=== PATIENT | female | born 1980 | race Two or more races ===

== ENCOUNTER 2018-10-30 12:48 | Inpatient (IN) | payer OTHER ==
[2018-10-30 12:44] VITALS: BMI 20.9
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
[2018-10-30] MEDS ORDERED: chlordiazePOXIDE HCL 25 MG CAPSULE PO PRN (15:08)
[2018-10-30] MEDS ORDERED: MAG HYDROX/AL HYDROX/SIMETH 30 ML UNIT-DOSE CUP PO PRN (15:08)
[2018-10-30] MEDS ORDERED: MAGNESIUM HYDROX 2400MG/30ML ORAL SUSPENSION 30 ML CUP PO PRN (15:08)
[2018-10-30] MEDS ORDERED: MAGNESIUM CITRATE 300 ML BOTTLE PO PRN (15:08)
[2018-10-30] MEDS ORDERED: hydrOXYzine PAMOATE 25 MG CAPSULE (FP) PO PRN (15:08)
[2018-10-30] MEDS ORDERED: guaiFENesin/D-METHORPHAN HB 10 ML UNIT-DOSE CUPS PO PRN (15:08)
[2018-10-30] MEDS ORDERED: IBUPROFEN 400 MG TABLET (FP) PO PRN (15:08)
[2018-10-30] MEDS ORDERED: MENTHOL/PHENOL 1 EACH UD MM PRN (15:08)
[2018-10-30] MEDS ORDERED: ACETAMINOPHEN 325 MG TABLET (FP) PO PRN (15:08)
[2018-10-30] MEDS: chlordiazePOXIDE HCL 25 MG CAPSULE PO SCH ×2 (16:58→22:47)
[2018-10-30] MEDS: THIAMINE HCL 100 MG TABLET (FP) PO SCH (22:47)
[2018-10-30] MEDS: MELATONIN 5 MG TABLETS PO PRN (22:47)
[2018-10-31] MEDS: chlordiazePOXIDE HCL 25 MG CAPSULE PO SCH ×4 (05:29→22:18)
[2018-10-31] MEDS: PRENATAL VITAMINS W/ FOLIC ACID TABLET (FP) PO SCH (10:39)
[2018-10-31 10:59] LABS: HEMATOCRIT 35.5 % (32.4-45.2); HEMOGLOBIN 11.2 GM/dL (10.7-15.3); MCH 27.2 pg (25.7-33.7); MCHC 31.5 g/dl (32.0-36.0); MEAN CELL VOLUME 86.3 fl (80-96); MEAN PLT VOLUME 8.5 fl (7.5-11.1); PLATELET COUNT 204 K/MM3 (134-434); RBC 4.11 M/mm3 (3.60-5.2); RDW 18.7 % (11.6-15.6); WHITE BLOOD COUNT 5.1 K/mm3 (4.0-10.0)
[2018-10-31 11:19] LABS: ALBUMIN 3.3 g/dl (3.4-5.0); ALK PHOS 60 U/L (45-117); ANION GAP 9 MMOL/L (8-16); BILIRUBIN,TOTAL 2.3 mg/dL (0.2-1); BLOOD UREA NITROGEN 6 mg/dL (7-18); CALCIUM 8.4 mg/dL (8.5-10.1); CHLORIDE 104 mmol/L (98-107); CO2 25 mmol/L (21-32); CREATININE 0.5 mg/dL (0.55-1.3); GLUCOSE,RANDOM 76 mg/dL (74-106); POTASSIUM 3.7 mmol/L (3.5-5.1); SGOT/AST 52 U/L (15-37); SGPT/ALT 40 U/L (13-61); SODIUM 138 mmol/L (136-145); TOT PROT 6.8 g/dl (6.4-8.2)
--- NOTE | 2018-10-31 12:22 | PN ---
S CIWA - CIWA Score Nausea/Vomitin-No Nausea/No Vomiting Muscle Tremors: 3 Anxiety: 3 Agitation: 3 Paroxysmal Sweats: 3 Orientation: 0-Oriented Tacttile Disturbances: 0-None Auditory Disturbances: 0-None Visual Disturbances: 0-None Headache: 0-None Present CIWA-Ar Total Score: 12 S Progress Note (SOAP) Subjective: sweats shakes interrupted sleep body aches agitation Objective: 10/31/18 12:24 Vital Signs Temperature 98.1 F 10/31/18 09:27 Pulse Rate 96 H 10/31/18 09:27 Respiratory Rate 16 10/31/18 09:27 Blood Pressure 126/77 10/31/18 09:27 O2 Sat by Pulse Oximetry (%) Laboratory Tests 10/31/18 10/31/18 07:00 07:00 WBC 5.1 RBC 4.11 Hgb 11.2 Hct 35.5 MCV 86.3 MCH 27.2 MCHC 31.5 L RDW 18.7 H Plt Count 204 MPV 8.5 Sodium 138 Potassium 3.7 Chloride 104 Carbon Dioxide 25 Anion Gap 9 BUN 6 L Creatinine 0.5 L Creat Clearance w eGFR > 60 Random Glucose 76 Calcium 8.4 L Total Bilirubin 2.3 H AST 52 H ALT 40 Alkaline Phosphatase 60 Total Protein 6.8 Albumin 3.3 L aaox3 ambulating no acute distress Assessment: 10/31/18 12:24 withdrawal sx Plan: continue detox increase fluids
[2018-10-31] MEDS: MELATONIN 5 MG TABLETS PO PRN (22:18)
[2018-10-31] MEDS: THIAMINE HCL 100 MG TABLET (FP) PO SCH (22:18)
[2018-11-01] MEDS: P-EPHED 60MG/TRIPROLIDI 2.5MG TABLET PO PRN (03:32)
[2018-11-01] MEDS: chlordiazePOXIDE HCL 25 MG CAPSULE PO SCH ×2 (06:03→10:20)
[2018-11-01] MEDS: PRENATAL VITAMINS W/ FOLIC ACID TABLET (FP) PO SCH (10:19)
[2018-11-01] MEDS: FERROUS SO4 325 MG TABLET (FP) PO SCH (10:55)
[2018-11-01] MEDS ORDERED: SODIUM CHLORIDE NASAL SPRAY 44 ML BOTTLE NS PRN (12:25)
--- NOTE | 2018-11-01 12:25 | PN ---
S CIWA - CIWA Score Nausea/Vomitin-No Nausea/No Vomiting Muscle Tremors: 3 Anxiety: 3 Agitation: 4-Moderately Restless Paroxysmal Sweats: 3 Orientation: 0-Oriented Tacttile Disturbances: 0-None Auditory Disturbances: 0-None Visual Disturbances: 0-None Headache: 0-None Present CIWA-Ar Total Score: 13 BHS Progress Note (SOAP) Subjective: sweats shakes interrupted sleep nasal congestion i normally take an iron supplement and i need to continue. Objective: 11/01/18 12:23 Vital Signs Temperature 98.2 F 11/01/18 10:41 Pulse Rate 84 11/01/18 10:41 Respiratory Rate 18 11/01/18 10:41 Blood Pressure 114/72 11/01/18 10:41 O2 Sat by Pulse Oximetry (%) Laboratory Tests 10/31/18 10/31/18 10/31/18 07:00 07:00 07:00 WBC 5.1 RBC 4.11 Hgb 11.2 Hct 35.5 MCV 86.3 MCH 27.2 MCHC 31.5 L RDW 18.7 H Plt Count 204 MPV 8.5 Sodium 138 Potassium 3.7 Chloride 104 Carbon Dioxide 25 Anion Gap 9 BUN 6 L Creatinine 0.5 L Creat Clearance w eGFR > 60 Random Glucose 76 Calcium 8.4 L Total Bilirubin 2.3 H AST 52 H ALT 40 Alkaline Phosphatase 60 Total Protein 6.8 Albumin 3.3 L RPR Titer Nonreactive aaox3 ambulating no acute distress labs results discussed with pt however pt insist she feels tired and wants to take her iron supplement. Assessment: 11/01/18 12:23 withdrawal sx Plan: continue detox iron supplement daily as per pt request ordered increase fluids
[2018-11-01] MEDS: chlordiazePOXIDE 5 MG CAPSULE PO SCH ×2 (17:40→22:10)
[2018-11-01] MEDS: THIAMINE HCL 100 MG TABLET (FP) PO SCH (22:10)
[2018-11-01] MEDS: MELATONIN 5 MG TABLETS PO PRN (22:10)
[2018-11-02] MEDS: P-EPHED 60MG/TRIPROLIDI 2.5MG TABLET PO PRN (05:54)
[2018-11-02] MEDS: chlordiazePOXIDE 5 MG CAPSULE PO SCH ×2 (05:54→10:23)
[2018-11-02] MEDS: FERROUS SO4 325 MG TABLET (FP) PO SCH (10:22)
[2018-11-02] MEDS: PRENATAL VITAMINS W/ FOLIC ACID TABLET (FP) PO SCH (10:22)
--- NOTE | 2018-11-02 13:08 | PN ---
BHS Progress Note (SOAP) Subjective: feeling better no tremor less sweat sleep better at night social with peers in day room Objective: 11/02/18 13:09 Vital Signs Temperature 97.9 F 11/02/18 09:38 Pulse Rate 108 H 11/02/18 09:38 Respiratory Rate 18 11/02/18 09:38 Blood Pressure 113/72 11/02/18 09:38 O2 Sat by Pulse Oximetry (%) Laboratory Last Values WBC 5.1 K/mm3 (4.0-10.0) 10/31/18 07:00 RBC 4.11 M/mm3 (3.60-5.2) 10/31/18 07:00 Hgb 11.2 GM/dL (10.7-15.3) 10/31/18 07:00 Hct 35.5 % (32.4-45.2) 10/31/18 07:00 MCV 86.3 fl (80-96) 10/31/18 07:00 MCH 27.2 pg (25.7-33.7) 10/31/18 07:00 MCHC 31.5 g/dl (32.0-36.0) L 10/31/18 07:00 RDW 18.7 % (11.6-15.6) H 10/31/18 07:00 Plt Count 204 K/MM3 (134-434) 10/31/18 07:00 MPV 8.5 fl (7.5-11.1) 10/31/18 07:00 Sodium 138 mmol/L (136-145) 10/31/18 07:00 Potassium 3.7 mmol/L (3.5-5.1) 10/31/18 07:00 Chloride 104 mmol/L (98-107) 10/31/18 07:00 Carbon Dioxide 25 mmol/L (21-32) 10/31/18 07:00 Anion Gap 9 MMOL/L (8-16) 10/31/18 07:00 BUN 6 mg/dL (7-18) L 10/31/18 07:00 Creatinine 0.5 mg/dL (0.55-1.3) L 10/31/18 07:00 Creat Clearance w eGFR > 60 (>60) 10/31/18 07:00 Random Glucose 76 mg/dL (74-106) 10/31/18 07:00 Calcium 8.4 mg/dL (8.5-10.1) L 10/31/18 07:00 Total Bilirubin 2.3 mg/dL (0.2-1) H 10/31/18 07:00 AST 52 U/L (15-37) H 10/31/18 07:00 ALT 40 U/L (13-61) 10/31/18 07:00 Alkaline Phosphatase 60 U/L (45-117) 10/31/18 07:00 Total Protein 6.8 g/dl (6.4-8.2) 10/31/18 07:00 Albumin 3.3 g/dl (3.4-5.0) L 10/31/18 07:00 RPR Titer Nonreactive (NONREACTIVE) 10/31/18 07:00 lab noted Assessment: 11/02/18 13:11 mild withdrawal sx Plan: medically supervised detox
[2018-11-02] MEDS: chlordiazePOXIDE HCL 10 MG CAPSULE PO SCH ×2 (17:42→22:10)
[2018-11-02] MEDS: THIAMINE HCL 100 MG TABLET (FP) PO SCH (22:10)
[2018-11-03] MEDS: chlordiazePOXIDE HCL 10 MG CAPSULE PO SCH ×2 (06:15→11:34)
--- NOTE | 2018-11-03 09:13 | DS ---
[facility] Detox Discharge Summary Admission Date: 10/30/18 Discharge Date: 11/03/18 - History Present History: Alcohol Dependence - Physical Exam Results Vital Signs: Vital Signs Temperature 97.7 F 11/03/18 07:28 Pulse Rate 63 11/03/18 07:28 Respiratory Rate 16 11/03/18 07:28 Blood Pressure 108/59 L 11/03/18 07:28 O2 Sat by Pulse Oximetry (%) - Treatment Hospital Course: Detox Protocol Followed, Detoxed Safely, Responded well, Discharged Condition Good, Rehab Referral Accepted - Medication Discharge Medications: Ambulatory Orders NK [No Known Home Medication] 10/30/18 - Diagnosis (1) Alcohol dependence with uncomplicated withdrawal Current Visit: Yes Status: Chronic - AMA Did Patient Leave Against Medical Advice: No (referred to [facility] rehab)
[2018-11-03 09:14] VITALS: BP 122/68; PULSE 95; TEMP 98
[2018-11-03] MEDS: PRENATAL VITAMINS W/ FOLIC ACID TABLET (FP) PO SCH (09:56)
[2018-11-03] MEDS: FERROUS SO4 325 MG TABLET (FP) PO SCH (09:57)
== END 2018-11-03 10:22 | disposition home or self-care (01) | DRG 775 ==
LOC: YASAS 12:48 → Y6N 15:14
PROC: HZ2ZZZZ Detoxification Services for Substance Abuse Treatment (ICD-10-PCS; principal; 2018-10-30)
DX: F10.230 Alcohol dependence with withdrawal, uncomplicated (principal); R00.0 Tachycardia, unspecified; Z98.84 Bariatric surgery status; Z88.0 Allergy status to penicillin
CPT/HCPCS: 36415; 80053; 85027; 86593